=== PATIENT | male | born 1985 | race African-American/Black ===

== ENCOUNTER 2017-12-20 10:10 | Emergency (ER) | payer OTHER ==
[~2017-12-20] VITALS: Ht 177.8 cm; Wt 140.6 kg
[~2017-12-20 10:10] MED LIST: FLEXERIL10 MG PO; FLUOXETINE HCL20 M2 PO; NAPROSYN 500 M500 MG PO; OMEPRAZOLE20 M2 PO; OXYCODONE5 M1 PO; PATADAY 2.5 ML2.5 ML OPH; PERCOCET 325 MG1 TA2 PO
[2017-12-20 10:16] VITALS: BP 166/108
--- NOTE | 2017-12-20 10:19 | ED INFLUENZA/URI COMPLAINT ---
History of Present Illness General Chief Complaint: Upper Respiratory Sx/Fever Stated Complaint: FLU LIKE SYMPTOMS Source: patient Exam Limitations: no limitations Vital Signs & Intake/Output Vital Signs & Intake/Output Vital Signs Date Time Temp Pulse Resp B/P B/P Pulse O2 O2 Flow FiO2 Mean Ox Delivery Rate 12/20 1057 99.0 12/20 1025 100.0 12/20 1023 100.0 12/20 1016 98.0 97 18 166/108 98 Room Air ED Intake and Output 12/21 0000 12/20 1200 Intake Total Output Total Balance Patient 310 lb Weight Weight Reported by Patient Measurement Method Allergies Coded Allergies: Penicillins (UNKNOWN 12/16/15) cefaclor (UNKNOWN 12/16/15) clarithromycin (UNKNOWN 12/16/15) erythromycin base (UNKNOWN 12/16/15) Reconcile Medications Fluoxetine HCl 20 MG CAPSULE 1 CAP PO DAILY DEPRESSION (Reported) Omeprazole 20 MG CAPSULE.DR 1 CAP PO DAILY ACID REFLUX (Reported) Ondansetron (Zofran Odt) 4 MG TAB.RAPDIS 1 TAB SL TID PRN NAUSEA Triage Note: 32 Y/O MALE C/O FLULIKE SYMPTOMS SINCE LAST NIGHT: COUGH, CHILLS, NAUSEA AND BODY ACHES. Triage Nurses Notes Reviewed? yes Onset: Gradual Duration: day(s): (1) Timing: remote history Severity: moderate Severity Numbers: 7 Prior Episodes/Possible Cause: occassional episodes No Modifying Factors: none Associated Symptoms: cough HPI: Patient is a 32-year-old male presenting to the emergency department with chief complaint of upper respiratory congestion, dry cough, body aches, fevers chills and some nausea that has been going on 1 day. Denies taking any medications down symptoms. No vomiting. Denies diarrhea. Unsure of any sick contacts but does work around sick people. PT DID RECEIVE FLU VACCINE TODAY. (Phyllis Fox) Past History Travel History Traveled to [place] past 21 day No Medical History Any Pertinent Medical History? see below for history Neurological: NONE EENT: NONE Cardiovascular: LVH Respiratory: NONE Gastrointestinal: GERD Hepatic: NONE Renal: NONE Musculoskeletal: NONE Psychiatric: NONE Endocrine: NONE Blood Disorders: NONE Cancer(s): NONE COMPENSATION MANAGER/Reproductive: NONE Surgical History Surgical History: N Psychosocial History Who do you live with Patient/Self Services at Home None What is your primary language Finnish Tobacco Use: Quit >30 days ago Family History Hx Contributory? No (Phyllis Fox) Review of Systems Review of Systems Constitutional: Reports: see HPI, chills, fever, malaise. Comments Review of systems: See HPI, All other systems negative. Constitutional, no weight loss HEENT: No visual changes no sore throat Cardiovascular: No chest pain ,palpitation , orthopnea or ankle swelling Skin, no jaundice no rashes Respiratory: No dyspnea sputum or hemoptysis GI: no vomiting NO DIARRHEA : No dysuria No hematuria Muscle skeletal: no back pain, no neck pain, Neurologic: No numbness no confusion Psych: No stress anxiety Immunology: No splenectomy or history of AIDS (Phyllis Fox) Physical Exam Physical Exam General Appearance: well developed/nourished, no apparent distress, alert, awake , comfortable Ears, Nose, Throat: pharynx normal, nasal congestion, TM SLIGHTLY BULDING Comments: Well-developed well-nourished person in no acute distress HEENT: Pupils equally round and reactive to light and accommodation. Nose is atraumatic. External auditory canal CLEAR- SLIGHT BULDGING IN TMS BILATERALLY. Pharynx normal. No swelling or edema. Neck: Supple, no lymphadenopathy, normal range of motion without pain or tenderness Back: Nontender Cardiovascular: Regular rate and rhythms no murmurs rubs or gallops Respiratory: Chest nontender. No respiratory distress.breath sounds clear to auscultation bilaterally Neuro: Alert oriented x3 Skin: No appreciable rash on exposed skin, skin is VERY warm and dry. Psych: Mood and affect is normal, memory and judgment is normal. Core Measures Sepsis Present: No Sepsis Focused Exam Completed? No (Phyllis Fox) Progress Differential Diagnosis: influenza, pneumonia, pharyngitis, sinusitis Plan of Care: Orders Procedure Date/time Status RAPID VIRAL INFLUENZA A 12/20 1012 Complete Microbiology 12/20 1017 NASOPHARYN: Influenza Virus A & B Rapid Smear - COMP Initial ED EKG: none (Phyllis Fox) Departure Departure Time of Disposition: 1041 Disposition: HOME OR SELF CARE Condition: Stable Clinical Impression Primary Impression: Viral syndrome Referrals: Master GUZMAN,Rebel Rawls (PCP/Family) Additional Instructions: FOLLOW UP WITH YOUR PRIMARY CARE DOCTOR, CALL TO MAKE APPT. INCREASE FLUIDS. TAKE ZOFRAN PRESCRIBED FOR NAUSEA. TAKE MOTRIN OR TYLENOL DIRECTED. Departure Forms: Customer Survey General Discharge Information Prescriptions: Current Visit Scripts Ondansetron (Zofran Odt) 1 TAB SL TID PRN NAUSEA #10 TAB (Phyllis Fox) PA/DRUPAL ARCHITECT Co-Sign Statement Statement: ED Attending supervision documentation- [] I saw and evaluated the patient. I have also reviewed all the pertinent lab results and diagnostic results. I agree with the findings and the plan of care as documented in the PA's/DRUPAL ARCHITECT's documentation. [X] I have reviewed the ED Record and agree with the PA's/DRUPAL ARCHITECT's documentation. [] Additions or exceptions (if any) to the PAs/DRUPAL ARCHITECT's note and plan are summarized below: [] (Odette GUZMAN,Merari)
[2017-12-20] MEDS ORDERED: ZOFRAN ODT4 M1 SL (10:44)
== END 2017-12-20 10:57 ==
LOC: ERH 10:10
DX: B34.9 Viral infection, unspecified (principal)
CPT/HCPCS: 87804; 87804-59

== ENCOUNTER → 2018-01-30 | Day surgery (SDC) | payer OTHER ==
[~2018-01-30] VITALS: Ht 177.8 cm; Wt 140.6 kg
[~2018-01-30] MED LIST changes: +ZOFRAN ODT4 M1 SL
--- NOTE | 2018-01-30 09:24 | Operative Report ---
Operative/Inv Procedure Report Surgery Date: 01/30/18 Name of Procedure: Right open carpal tunnel release. Pre-Operative Diagnosis: Median neuropathy right wrist and Palm (carpal tunnel syndrome). Post-Operative Diagnosis: Same. Estimated Blood Loss: scant Surgeon/Manager Performance Improvement: Shahzad Valente MD / Tin Anesthesia: laryngeal mask airway Monitors: EKG/blood pressure/oxygen saturation. IV Fluids: Lactated Ringer's. Implants: None. Urine Output: None. Drains: None. Specimens: None. Microbiology: None. Tourniquet: 30 minutes@275 mmHg. Complications: None known. Condition: Stable. Operative Indication: The patient is a 32-year-old male sent to me with bilateral upper extremity numbness and tingling felt in the hands. 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 By the time the patient was referred to me he had undergone elected diagnostic studying of the upper extremities which showed median neuropathy at the volar wrists bilaterally (carpal tunnel syndrome ) and no evidence of ulnar neuropathy from elbow to wrist on either side. Given the disparity between the patient's electrodiagnostic testing and his clinical symptoms and physical findings I did actually repeat electrodiagnostic study ( EMG/NCS) by a different practitioner with return of the same results showing presence of bilateral median neuropathy at the hands/wrists due to carpal tunnel syndrome and no evidence of cervical radiculopathy or ulnar neuropathy on either side. I did treat the patient empirically conservatively for both ulnar neuropathy at the elbows as well as median neuropathy at the wrists. This did include nighttime elbow extension splinting for one of the elbows and cockup wrist splinting for the wrist. This did not provide any meaningful reduction in the patient's symptoms. I did perform a carpal canal steroid injection I believe on the patient's right hand which provided onlyequivocal short-term anesthetic symptom relief and no subsequent steroid effect from the injection. With ongoing symptoms that were actually worsening over time start into interfering increasingly with the patient's basic daily activities and giving difficulty with sleeping we did discuss the options. The patient was reminded of the disparity between his electrodiagnostic testing and his symptoms and clinical findings. After discussion we did ultimately decide to try a decompression of the carpal canal (carpal tunnel release) on one side only and see if his symptoms treating the neuropathy identified on electrodiagnostic study correlate with any improvement in his clinical symptoms and physical findings with carpal tunnel release surgery. We did discuss the risks and benefits and expected outcomes of continued attempts at nonoperative management versus that of trying a decompression of the carpal canal (carpal tunnel release ) with no guarantees whatsoever that this will do anything for his symptoms. All of the patient's questions were answered at length. After discussion of the above the patient did decide that he would like to move forward and try a carpal tunnel release on the right side and see what happens. Surgical consent was therefore obtained. Operative/Procedure Note Note: The patient was brought to the operating room and placed on the operating room in the supine position. All bony prominences were well padded. The patient was given a dose of IV antibiotics for infection prophylaxis. General anesthesia was then induced by the anesthesiologist. A well-padded tourniquet was applied to the proximal portion of the right arm. The right upper extremity was then prepped and draped in the usual sterile fashion. The palm was marked for a planned volar approach to the carpal canal. This included marking the skin with a skin marker across the palm in line with the ulnar border of the radially abducted thumb. A second skin marking was made with a skin marker along the palm in line with the ulnar border of the middle finger. The intersection of these two lines was anticipated to be roughly the distal margin of the underlying transverse carpal ligament. The skin was marked for the actual palmar skin incision using the patient's natural skin creases running as close as possible from the point of intersection of these two lines in a distal to proximal direction to the level of the distal volar wrist skin flexion crease. The extremity was exsanguinated and the pneumatic tourniquet was inflated to a pressure of 275 mm Hg. The skin incision was then made with a #15 scalpel blade. Sharp dissection was carried down through the skin and subcutaneous tissue with scalpel dissection. Hemostasis was achieved with a combination of manual pressure and electrocautery. Retractors were placed in to the wound and the longitudinal fibers of the palmar fascia were visualized. The palmar fascia was then divided under direct visualization longitudinally in line with the skin incision. Retractors were repositioned deeper in to the wound and the divided palmar fascia was scraped in a radial and ulnar direction off of the underlying transverse carpal ligament. The transverse carpal ligament was then visualized. The transverse carpal ligament was then divided with some difficulty using multiple scalpel blades. Interestingly the transverse carpal ligament was markedly thickened and actually appeared to be somewhat calcified to the point that it was difficult for a scalpel blade to slide through the tissues easily. We did eventually divide the transverse carpal ligament completely including division of the most distal and proximal aspects of the transverse carpal ligament. Dissection with retractors in place under direct visualization did also include division of the distal most aspect of the deep forearm fascia proximally. Inspection of the contents of the carpal canal was possible after division of the transverse carpal ligament and teasing the undersurface of the transverse carpal ligament away from underlying adhesions to the contents of the carpal canal. Inspection of the Median nerve within the carpal canal showed the nerve with a modest hourglass type compression to the central portion of the carpal canal. The surrounding flexor tendons were notable for marked proliferation and thickening of the tenosynovium consistent with tenosynovitis. I did perform a relatively aggressive flexor tenosynovectomy to decompress the bulk of the inflamed thickened tenosynovial tissue about the flexor tendons within the carpal canal. I next performed a limited epineurotomy of the volar aspect of the Median nerve epineural tissue was performed using blunt tipped scissors to spread the volar epineural tissue. [This visually decompressed the hourglass constriction of the nerve and was noted to improve the microvasculature to the nerve.] With the carpal canal and Median nerve now adequately decompressed, our attention was directed to closure. The wound was irrigated multiple times with saline. The tourniquet was deflated and hemostasis was achieved once again with manual pressure and electrocautery. The soft tissue repair consisted of direct approximation of the skin margins using 3-0 Prolene placed in interrupted vertical mattress fashion. The wound was washed and dried. Adaptic dressing was placed over the suture line followed by a bulky gauze dressing followed by gauze wraps to hold the gauze dressing in place. The gauze dressings were then held in place with a 2 inch Bhaskar bandage which was applied just snug enough to hold the dressings in place and to provide gentle compression to the palmar wound after surgery. The [left] upper extremity was placed into a Nino pillow for elevation. The patient was awakened from general anesthesia and then transferred to the hospital stretcher and then brought to the recovery room in stable condition having tolerated the procedure well. Findings: 1) Marked thickening and seeming calcification of the transverse carpal ligament. 2) Marked flexor tenosynovitis with proliferation and thickening of flexor tenosynovial tissue. 3) Moderate constriction of the median nerve within the carpal canal. Discharge Disposition: PACU
== END ==
LOC: STS 03:13
DX: G56.01 Carpal tunnel syndrome, right upper limb (principal); M65.841 Other synovitis and tenosynovitis, right hand; E66.9 Obesity, unspecified; Z68.42 Body mass index [BMI] 45.0-49.9, adult; F17.200 Nicotine dependence, unspecified, uncomplicated
CPT/HCPCS: J0131; J2250

== ENCOUNTER → 2018-03-27 | Day surgery (SDC) | payer OTHER ==
[~2018-03-27] VITALS: Ht 177.8 cm; Wt 140.6 kg
[~2018-03-27] MED LIST changes: +MULTIVITAMINS1 EAC9 PO
--- NOTE | 2018-03-27 08:48 | Operative Report ---
Operative/Inv Procedure Report Surgery Date: 03/27/18 Name of Procedure: Left open carpal tunnel release. Pre-Operative Diagnosis: Left carpal tunnel syndrome. Post-Operative Diagnosis: Same. Estimated Blood Loss: scant Surgeon/Hot Mill Operator: Shahzad Valente MD Anesthesia: laryngeal mask airway Monitors: EKG/blood pressure/oxygen saturation IV Fluids: Lactated Ringer's. Implants: None. Urine Output: None. Drains: None. Specimens: None. Microbiology: None. Tourniquet: 16 minutes at 300 mmHg. Complications: None known. Condition: Stable. Operative Indication: The patient is a 33-year-old male previously worked up for neuropathy symptoms of the bilateral hands. We did eventually decided to move forward with staged bilateral open carpal tunnel release surgeries. The patient did undergo open carpal tunnel release of the contralateral right palm about 1 month ago. He enjoyed very significant symptom improvement and he did decide that he would like to move forward with the previously planned left carpal tunnel release today. The risks and benefits and expected outcomes were discussed once again with the patient at length. This was referencing both nonoperative management which had failed versus that of operative intervention which at least on the contralateral side with similar symptoms was very helpful. All of the patient's questions were answered at length. He did wish to move forward with surgical intervention and surgical consent was obtained. Operative/Procedure Note Note: The patient was brought to the operating room and placed on the operating room in the supine position. All bony prominences were well padded. Compression sleeves were placed on the bilateral legs in order to minimize lower extremity venous pooling and hopefully cutdown on risk of blood clot formation propagation. The patient was given a dose of IV antibiotics for infection prophylaxis. General anesthesia was then induced by the anesthesiologist. A well-padded tourniquet was applied to the proximal portion of the [left] arm. The [left] upper extremity was then prepped and draped in the usual sterile fashion. The palm was marked for a planned volar approach to the carpal canal. This included marking the skin with a skin marker across the palm in line with the ulnar border of the radially abducted thumb. A second skin marking was made with a skin marker along the palm in line with the ulnar border of the middle finger. The intersection of these two lines was anticipated to be roughly the distal margin of the underlying transverse carpal ligament. The skin was marked for the actual palmar skin incision using the patient's natural skin creases running as close as possible from the point of intersection of these two lines in a distal to proximal direction to the level of the distal volar wrist skin flexion crease. The extremity was exsanguinated and the pneumatic tourniquet was inflated to a pressure of 300 mm Hg. The skin incision was then made with a #15 scalpel blade. Sharp dissection was carried down through the skin and subcutaneous tissue with scalpel dissection. Hemostasis was achieved with a combination of manual pressure and electrocautery. Retractors were placed in to the wound and the longitudinal fibers of the palmar fascia were visualized. The palmar fascia was then divided under direct visualization longitudinally in line with the skin incision. Retractors were repositioned deeper in to the wound and the divided palmar fascia was scraped in a radial and ulnar direction off of the underlying transverse carpal ligament. The transverse carpal ligament was then divided longitudinally in line with the skin incision under direct visualization using a scalpel to divide the central portion of the ligament and then using blunt tipped scissors to complete the division of the proximal and distal margins of the ligament after spreading the soft tissues directly above and below the ligament at these locations to isolate the fibers of the ligament. Inspection of the contents of the carpal canal was possible after division of the transverse carpal ligament and teasing the undersurface of the transverse carpal ligament away from underlying adhesions to the contents of the carpal canal. Inspection of the Median nerve within the carpal canal showed mild hourglass constriction and mild hypovascularity of the median nerve.. Also noted was marked flexor tenosynovitis with hypertrophic thickened tenosynovium about all of the flexor tendons. A limited epineurotomy of the volar aspect of the Median nerve epineural tissue was performed using blunt tipped scissors to spread the volar epineural tissue. [This visually decompressed the hourglass constriction of the nerve and was noted to improve the microvasculature to the nerve.] A moderately aggressive flexor tenosynovectomy was performed to decompress the flexor tendons and further reduce pressure about the median nerve. With the carpal canal and Median nerve now adequately decompressed, our attention was directed to closure. The wound was irrigated multiple times with saline. The tourniquet was deflated and hemostasis was achieved once again with manual pressure and electrocautery. The soft tissue repair consisted of direct approximation of the skin margins using 3-0 Prolene placed in vertical mattress fashion. The wound was washed and dried. Adaptic dressing was placed over the suture line followed by a bulky gauze dressing followed by gauze wraps to hold the gauze dressing in place. The gauze dressings were then held in place with a 2 inch Bhaskar bandage which was applied just snug enough to hold the dressings in place and to provide gentle compression to the palmar wound after surgery. The [left] upper extremity was placed into a Nino pillow for elevation. The patient was awakened from general anesthesia and then transferred to the hospital stretcher and then brought to the recovery room in stable condition having tolerated the procedure well. Findings: 1) Mild hypovascularity median nerve within the carpal canal. 2) Mild hourglass constriction median nerve within the carpal canal. 3) Marked flexor tenosynovitis with hypertrophic inflamed flexor tenosynovial tissue. Discharge Disposition: PACU
== END ==
LOC: STS 02:22
DX: G56.02 Carpal tunnel syndrome, left upper limb (principal); M65.842 Other synovitis and tenosynovitis, left hand; K21.9 Gastro-esophageal reflux disease without esophagitis; F17.200 Nicotine dependence, unspecified, uncomplicated; E66.01 Morbid (severe) obesity due to excess calories; Z68.42 Body mass index [BMI] 45.0-49.9, adult; R07.89 Other chest pain
CPT/HCPCS: J0131; J2250; J3490